=== PATIENT | female | born 2000 | race Caucasian/White ===

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

== ENCOUNTER 2022-05-15 06:42 | Emergency (ER) | payer OTHER | END 2022-05-15 07:20 | disposition home or self-care (01) | LOC: MADERS 06:42 | DX: H61.22 Impacted cerumen, left ear (principal); F17.210 Nicotine dependence, cigarettes, uncomplicated | CPT/HCPCS: 69210 ==

== ENCOUNTER 2023-11-23 09:43 | Emergency (ER) | payer OTHER, SELFPAY | END 2023-11-23 11:00 | disposition home or self-care (01) | LOC: MADERS 09:43 | DX: S29.011A Strain of muscle and tendon of front wall of thorax, initial encounter (principal); M94.0 Chondrocostal junction syndrome [Tietze]; R09.1 Pleurisy; F17.210 Nicotine dependence, cigarettes, uncomplicated; X58.XXXA Exposure to other specified factors, initial encounter ==

== ENCOUNTER 2023-12-08 13:24 | Emergency (ER) | payer SELFPAY ==
[2023-12-08] MEDS ORDERED: Ondansetron ODT 4 MG TAB ONE (13:45)
== END 2023-12-08 14:05 | disposition home or self-care (01) ==
LOC: MADERS 13:24
DX: A05.9 Bacterial foodborne intoxication, unspecified (principal); F17.210 Nicotine dependence, cigarettes, uncomplicated
CPT/HCPCS: 99283; Q0162

== ENCOUNTER 2024-02-23 19:51 | Emergency (ER) | payer SELFPAY | END 2024-02-23 20:36 | disposition home or self-care (01) | LOC: MADERS 19:51 | DX: T63.441A Toxic effect of venom of bees, accidental (unintentional), initial encounter (principal); F17.210 Nicotine dependence, cigarettes, uncomplicated | CPT/HCPCS: 99283 ==